=== PATIENT | female | born 1955 | race Two or more races ===

== ENCOUNTER 2016-04-05 22:34 | Inpatient (IN) | payer MEDICAID ==
[~2016-04-05] VITALS: Ht 154.9 cm; Wt 60.7 kg
[2016-04-06] MEDS ORDERED: ONDANSETRON 4 MG INJ IV STA (01:26)
[2016-04-06] MEDS ORDERED: morphine 2 MG INJ IV STA (01:26)
[2016-04-06] MEDS ORDERED: SOD CHLORIDE 0.9% 1,000 ML IV STA (01:26)
[2016-04-06 02:29] LABS: BASOPHILS % 0.4 % (0.0-2.0); EOSINOPHILS % 0.3 % (0.0-7.0); HEMATOCRIT 42.4 % (37.0-47.0); HEMOGLOBIN 14.4 g/dl (12.0-16.0); LYMPHOCYTES # 2.6 10^3/ul (0.8-2.9); LYMPHOCYTES % 20.1 % (15.0-51.0); MEAN CORPUSCULAR HEMOGLOBIN 30.5 pg (29.0-33.0); MEAN CORPUSCULAR HGB CONC 34.1 g/dl (32.0-37.0); MEAN CORPUSCULAR VOLUME 89.4 fl (82.0-101.0); MEAN PLATELET VOLUME 9.9 fl (7.4-10.4); MONOCYTE # 0.6 10^3/ul (0.3-0.9); MONOCYTES % 4.3 % (0.0-11.0); NEUTROPHIL # 9.7 10^3/ul (1.6-7.5); NEUTROPHILS % 74.9 % (39.0-77.0); PLATELET COUNT 345 10^3/UL (140-440); RED BLOOD COUNT 4.74 10^6/ul (4.20-5.40); RED CELL DISTRIBUTION WIDTH 13.8 % (11.5-14.5)
[2016-04-06 02:37] LABS: ALBUMIN 4.6 g/dl (3.3-4.9)
[2016-04-06 02:38] LABS: POTASSIUM 5.4 mmol/L (3.5-5.1)
[2016-04-06 02:40] LABS: ALBUMIN/GLOBULIN RATIO 1.58; BILIRUBIN,INDIRECT 0.9 mg/dl (0-1.1); BILIRUBIN,TOTAL 0.9 mg/dl (0.2-1.3); CREATININE 1.08 mg/dl (0.44-1.00); TOTAL PROTEIN 7.5 g/dl (6.1-8.1)
[2016-04-06 02:41] LABS: CALCIUM 10.7 mg/dl (8.4-10.2)
[2016-04-06 02:47] LABS: ADD UMIC NO; URINE BILIRUBIN (Dip) NEGATIVE (NEGATIVE); URINE BLOOD (Dip) NEGATIVE (NEGATIVE); URINE COLOR LT. YELLOW (YELLOW); URINE GLUCOSE (Dip) >=1000 % (NEGATIVE); URINE KETONES (Dip) NEGATIVE (NEGATIVE); URINE LEUKOCYTE ESTERASE (Dip) NEGATIVE (NEGATIVE); URINE NITRITE (Dip) NEGATIVE (NEGATIVE); URINE TOTAL PROTEIN (Dip) NEGATIVE (NEGATIVE); URINE UROBILINOGEN (Dip) 0.2 E.U./dL (0.1-1.0)
[2016-04-06 02:52] LABS: CONDITION 1
[2016-04-06] MEDS ORDERED: SOD CHLORIDE 0.9% 1,000 ML IV ONE ×2 (03:00→05:00)
--- NOTE | 2016-04-06 03:58 | RADRPT ---
PROCEDURE: CT of the abdomen and pelvis without contrast CLINICAL INDICATION: Upper abdominal pain. TECHNIQUE: Spiral CT images through the abdomen and pelvis without the use of contrast. The admin istered radiation dose is CTDI 7.48 and DLP 422.36. One or more of the following dose reduction enrique hniques were used: automated exposure control, adjustment of the mA and/or kV according to patient s ize, or use of iterative reconstruction technique. COMPARISON: None FINDINGS: Lack of oral and intravenous contrast somewhat limits evaluation. Slight dependent atelectasis of the lung bases is seen. No pleural effusion is seen. Trace pericardial fluid. Small calcified granuloma of the liver and spleen. Tiny probable right adrenal adenoma. The kidney s, left adrenal, and pancreas are unremarkable appearance. No stones are seen in the kidneys, urete rs, or bladder. The gallbladder is contracted. No biliary or pancreatic ductal dilatation is seen. . . There is no evidence for bowel obstruction, free air, or abscess. The appendix is normal in a ppearance. few colonic diverticula are seen. There is no evidence for diverticulitis. No adenopath y or ascites is seen. Aortic calcification is seen. Debris is seen in the stomach. The duodenum is slightly distended with fluid and debris. The aorta - SMA angle is normal at 42 degrees. Calcified uterine fibroids are seen. There is a 4 cm low attenuation lesion of the left ovary, probable cyst . A small calcification is seen in the right ovary. The urinary bladder is unremarkable in appeara nce. Tiny fat-containing right inguinal hernia.. Degenerative change of the spine. IMPRESSION: Fluid and debris in the stomach and duodenum slightly dilated duodenum but normal angle between the aorta and superior mesenteric artery. 4 cm probable left ovarian cyst. Pelvic ultrasound followup can be obtained as indicated. Uterine fibroids. Tiny probable right adrenal adenoma.. RPTAT: [facility] Physician Micheline Date Time Electronically viewed and signed by Physician Micheline on 04/06/2016 03:58 ELODIA/
[2016-04-06] MEDS ORDERED: ONDA4TAB11 PO (05:52)
[2016-04-06] MEDS ORDERED: NA POLYST SULFON 15 GM/60 ML BTL PO ONE (06:15)
[2016-04-06] MEDS ORDERED: ACETAMINOPHEN 325 MG TAB PO PRN ×2 (07:00→07:30)
[2016-04-06] MEDS ORDERED: ONDANSETRON 4 MG INJ IV PRN ×2 (07:00→07:30)
--- NOTE | 2016-04-06 07:08 | ERA ---
ER Documentation Chief Complaint Date/Time DATE: 04/06/16 TIME: 06:59 Chief Complaint High blood sugar and wt loss of 10 lbs in 2 weeks HPI This 6-year-old female presents with hyperglycemia, temporal weight-loss in 8 days according to , upper abdominal pain. She normally takes glipizide and metformin for her diabetes which usually works but for the last week she is been any will control her own sugar and has had sugars in the 4 and 500s. Vomiting is been nonbloody and nonbilious. States that she had an upper respiratory infection diagnosis bronchitis a week ago with flulike symptoms across her entire body. She was given a antibiotic for this for her doctor and that resolved but the vomiting got worse. ROS All systems reviewed and are negative except as per history of present illness. Medications Home Meds Active Scripts Ondansetron (Zofran Odt) 4 Mg Tab.rapdis, 4 MG PO Q6, #10 Prov:DENI CHING DO 04/06/16 Allergies Allergies: Coded Allergies: No Known Allergies (Verified Allergy, Mild, 03/23/09) PMhx/Soc History of Surgery: No Hx Neurological Disorder: No Hx Respiratory Disorders: No Hx Cardiac Disorders: No Hx Miscellaneous Medical Probl: Yes (HTN) Hx Alcohol Use: No Hx Substance Use: No Smoking Status: Never smoker Physical Exam Vitals Vital Signs Date Time Temp Pulse Resp B/P Pulse Ox O2 Delivery O2 Flow Rate FiO2 04/06/16 05:23 97.8 86 12 123/60 98 04/05/16 23:04 98.1 104 20 127/59 99 Physical Exam Const: [] Mild distress Head: Atraumatic Eyes: Normal Conjunctiva ENT: Normal External Ears, Nose and Mouth. It is membranes with a mouth dry. Neck: Full range of motion..~ No meningismus. Resp: Clear to auscultation bilaterally Cardio: Regular rate and rhythm, no murmurs Abd: Soft, mild tenderness in the upper half of the abdomen without guarding or rebound non distended. Normal bowel sounds Skin: No petechiae or rashes Back: No midline or flank tenderness Ext: No cyanosis, or edema Neur: Awake and alert and oriented 3, no focal deficits Psych: Normal Mood and Affect Result Diagram: 04/06/1614604/06/16146 Results 24 hrs Laboratory Tests Test 04/06/16 01:47 04/06/16 04:27 04/06/16 06:08 Alanine Aminotransferase (ALT/SGPT) 18IU/L Albumin 4.6g/dl Albumin/Globulin Ratio 1.58 Alkaline Phosphatase 149IU/L Anion Gap 20 Aspartate Amino Transf (AST/SGOT) 13IU/L Basophils # 0.010^3/ul Basophils % 0.4% Blood Urea Nitrogen 35mg/dl Calcium Level 10.7mg/dl Carbon Dioxide Level 25mmol/L Chloride Level 94mmol/L Creatinine 1.08mg/dl Direct Bilirubin 0.00mg/dl Eosinophils # 0.010^3/ul Eosinophils % 0.3% Globulin 2.90g/dl Glucose Level 502mg/dl Hematocrit 42.4% Hemoglobin 14.4g/dl Indirect Bilirubin 0.9mg/dl Lactic Acid Level 2.1mmol/L Lipase 271U/L Lymphocytes # 2.610^3/ul Lymphocytes % 20.1% Mean Corpuscular Hemoglobin 30.5pg Mean Corpuscular Hemoglobin Concent 34.1g/dl Mean Corpuscular Volume 89.4fl Mean Platelet Volume 9.9fl Monocytes # 0.610^3/ul Monocytes % 4.3% Neutrophils # 9.710^3/ul Neutrophils % 74.9% Nucleated Red Blood Cells # 0.010^3/ul Nucleated Red Blood Cells % 0.0/100WBC Platelet Count 58301^3/UL Potassium Level 5.4mmol/L Red Blood Count 4.7410^6/ul Red Cell Distribution Width 13.8% Sodium Level 134mmol/L Total Bilirubin 0.9mg/dl Total Protein 7.5g/dl Urine Bilirubin NEGATIVE Urine Clarity CLEAR Urine Color LT. YELLOW Urine Glucose >=1000% Urine Hemoglobin NEGATIVE Urine Ketones NEGATIVE Urine Leukocyte Esterase NEGATIVE Urine Nitrite NEGATIVE Urine Specific [place] 1.010 Urine Total Protein NEGATIVE Urine Urobilinogen 0.2 E.U./dL Urine pH 5.5 White Blood Count 13.010^3/ul Bedside Glucose 316mg/dL 292mg/dL Current Medications Medications (Trade) Dose Ordered Sig/Paul Route PRN Reason Start Time Stop Time Status Last Admin Dose Admin Sodium Chloride (NS) 1,000 ml @ 1,000 mls/hr Q1H STAT IV 04/06/16 01:26 04/06/16 02:25 DC 04/06/16 01:55 Morphine Sulfate (morphine) 2 mg ONCE STAT IV 04/06/16 01:26 04/06/16 01:28 DC 04/06/16 01:56 Ondansetron HCl 4 mg 4 mg ONCE STAT IV 04/06/16 01:26 04/06/16 01:28 DC 04/06/16 01:56 Sodium Chloride 1,000 ml @ 1,000 mls/hr Q1H ONCE IV 04/06/16 03:00 04/06/16 03:59 DC 04/06/16 03:05 Sodium Chloride (NS) 1,000 ml @ 1,000 mls/hr Q1H ONCE IV 04/06/16 05:00 04/06/16 05:59 DC 04/06/16 05:01 Sodium Polystyrene Sulfonate (Kayexalate) 30 gm ONCE ONCE PO 04/06/16 06:15 04/06/16 06:16 DC 04/06/16 06:24 Ondansetron HCl (Zofran Inj) 4 mg BRIDGE ORDER PRN IV NAUSEA AND/OR VOMITING 04/06/16 07:00 04/07/16 06:59 Acetaminophen (Tylenol Tab) 650 mg ER BRIDGE PRN PO MILD PAIN/FEVER 04/06/16 07:00 04/07/16 06:59 Procedures/MDM 60-year-old female with vomiting and rapid unexplained weight loss, dehydration and uncontrollable blood sugars. Patient's nausea was resolved with Zofran. She is able to tolerate smaller Kayexalate for her hyperkalemia after this. She is also given 3 L of fluid which helped decrease her sugar to a level below 300. She does however have a constellation of findings including adrenal adenoma , leukocytosis, hyperkalemia and other metabolic abnormalities. The patient's blood sugars can be reduced in the emergency room is unlikely that her home medication is continue to control them. Patient would definitively benefit from admission for further IV hydration and further workup of her rapid weight loss with concomitant adrenal adenoma. Abdominal pain is reduced with morphine. Spoke with Dr. Pompa who will be admitting the patient to the medical surgical for for further evaluation. CT abdomen and pelvis interpretation: I see no obstruction, no free air, there is a right adrenal adenoma, fibroids, ovarian cyst, no acute fractures. EKG interpretation: Normal sinus rhythm rate of 85, normal axis, no ST-T wave changes concerning for acute ischemia, normal intervals. Normal EKG Departure Diagnosis: Primary Impression: Vomiting Additional Impressions: Hyperglycemia Rapid weight loss Hyperkalemia Renal insufficiency Acute abdominal pain Fibroids Adrenal adenoma Condition: Stable Patient Instructions: Hyperglycemia (High Blood Sugar), Vomiting (6Y-Adult) Additional Instructions: Llame al doctor MAANA y zachary jonny DARÍO PARA DENTRO DE 1-2 SAMANO.Dgale a la secretaria que nosotros le instruimos hacer esta darío.Avise o llame si rider condicin se empeora antes de la darío. Regresa aqui si peor o no mejor. DENI CHING DO Apr 06, 2016 07:08
[2016-04-06] MEDS ORDERED: SOD CHLORIDE 0.9% 1,000 ML IV SCH (07:20)
[2016-04-06] MEDS ORDERED: NACL 0.9% 3 ML SYG IV SCH (07:30)
[2016-04-06] MEDS ORDERED: ALBUTEROL/IPRATROPIUM (NEB) 3 ML AMP HHN PRN (07:30)
[2016-04-06] MEDS ORDERED: morphine 2 MG INJ IV PRN (07:30)
[2016-04-06] MEDS: INSULIN ASPART [NOVOLOG] 3 ML PEN SC SCH ×4 (08:46→23:03)
[2016-04-06] MEDS: INSULIN GLARGINE [LANtus] 3 ML PEN SC SCH (08:47)
[2016-04-06] MEDS: HEPARIN 5,000 UNIT/0.5 ML SYG SC SCH ×2 (10:00→21:18)
[2016-04-06 11:00] VITALS: TEMP 97.8
[2016-04-06 13:09] VITALS: Ht 154.9 cm; Wt 60.7 kg
[2016-04-06 13:35] VITALS: BP 135/64; PULSE 85; RESP 16
[2016-04-06] MEDS ORDERED: BENA40TA41 PO (14:34)
[2016-04-06] MEDS ORDERED: CHLO25TA13 PO (14:34)
[2016-04-06] MEDS ORDERED: AMLO-147 PO (14:34)
[2016-04-06] MEDS ORDERED: METF1000 PO (14:34)
[2016-04-06] MEDS ORDERED: GLIP-95 PO (14:34)
[2016-04-06] MEDS ORDERED: GLUCOSE GEL 15 GRAM TUBE BUCCAL PRN (15:30)
[2016-04-06] MEDS ORDERED: GLUCAGON 1 MG INJ IM PRN (15:30)
[2016-04-06] MEDS ORDERED: GLUCOSE GEL 15 GRAM TUBE PO PRN ×2 (15:30)
[2016-04-06] MEDS ORDERED: DEXTROSE 50% 50 ML SYRINGE IV PRN ×2 (15:30)
[2016-04-06] MEDS: SOD CHLORIDE 0.9% 1,000 ML IV SCH ×2 (15:30→22:14)
[2016-04-06] MEDS: FAMOTIDINE 20 MG INJ IV SCH (15:53)
[2016-04-06] MEDS ORDERED: GUAIFENESIN 20 MG/ML 5ML CUP PO PRN (16:00)
[2016-04-06 16:07] LABS: POTASSIUM 3.6 mmol/L (3.5-5.1)
[2016-04-06 16:10] LABS: CREATININE 0.68 mg/dl (0.44-1.00)
--- NOTE | 2016-04-06 16:19 | HP ---
DATE OF ADMISSION: 04/06/2016 CHIEF COMPLAINT: Elevated blood sugar and weakness and questionable weight loss. HISTORY OF PRESENT ILLNESS: A 60-year-old female with past medical history of type 2 diabetes, esse ntial hypertension, high cholesterol, who has been having complaints of weakness and also elevated b lood sugars. Apparently, the family checked her sugar at home and it was in the 400 to 500 range. She has also been having some 10 pound weight loss over the last 7 to 8 days, unintentional. No nig ht sweats. She says that she was recently treated for flu over the last week or so. [facility] and got azithromycin and prednisone which gave her some relief, but 3 days ago started having nausea symptoms and 1 episode of vomiting nonbilious, nonbloody. When chas mason came into the ER today, she was found with a fingerstick sugar of 500, but no signs of any DKA, an d her potassium was a little high at 5.4. Denies any history of any stroke or heart attack. She wu s also been having some mild productive cough, slightly greenish in nature, but denies any fevers or chills. No upper or lower GI bleeding. No diarrhea, no constipation. PAST MEDICAL HISTORY: As stated above. ALLERGIES: NO KNOWN DRUG ALLERGIES. HOME MEDICATIONS: 1. Amlodipine 10 mg daily. 2. Benazepril 40 mg daily. 3. Chlorthalidone 25 mg daily. 4. Zofran 4 mg q.6h. 5. Glipizide 10 mg with meals. 6. Metformin 1000 mg b.i.d. PAST SURGICAL HISTORY: None. FAMILY HISTORY: Positive for diabetes and hypertension. SOCIAL HISTORY: Negative for smoking, drinking, or IV drug abuse. PHYSICAL EXAMINATION: VITAL SIGNS: Temperature max 98.5, blood pressure 115 to 135/94 to 64, saturating at 98% on room ai r. GENERAL: The patient is lying in bed, answering questions appropriately. Family members at the bed side. No acute distress. HEENT: Pupils equal, round, react to light. Extraocular muscles intact. NECK: Supple, no thyromegaly. LUNGS: Clear to auscultation bilaterally. CARDIOVASCULAR: S1, S2 heard. No rubs or gallops. ABDOMEN: Soft, nontender, nondistended. Normal bowel sounds. No rebound or guarding. MUSCULOSKELETAL: No lower extremity edema bilaterally. NEUROLOGIC: No focal deficits. LABORATORY DATA: UA shows negative nitrites, negative leukocyte esterase. WBC 13.0, the rest of th e CBC is normal. Sodium 134, potassium 5.4, chloride 94, CO2 of 25, BUN of 35, creatinine 1.08, glu cose 502, calcium was 10.7. The LFTs are essentially normal. Lipase was normal. IMAGING: She had a CT abdomen and pelvis shows fluid and debris in the stomach and duodenum, slight ly dilated duodenum, with normal angle between aorta and SMA. A 4 cm probable left ovarian cyst, ut erine fibroids, tiny probable right adrenal adenoma. ASSESSMENT AND PLAN: This is a 60-year-old female coming in with signs of elevated blood sugars, we ight loss, weakness, dehydration. 1. Weakness again with signs of questionable weight loss. She does have hyperkalemia mild, and als o slightly elevated creatinine levels. I suspect her symptoms are secondary to dehydration. Her rider gars are in the 500 range. No signs of any DKA. There were no ketones in the urine. I do think we need to check an ABG or any serum ketones at this point. She has gotten IV fluids since admission. We will recheck a basic metabolic panel later today. We will let her start on a diet. We will ch filipe a TSH, A1c, lipid panel. Continue IV fluids as well. Continue sliding scale insulin. 2. Type 2 diabetes. Again, sugars are elevated in 500 range. The most recent one has been down to the high 100 range, so again continue sliding scale insulin. Check A1c. 3. Essential hypertension. Blood pressure stable. Continue current medications. 4. High cholesterol. Check a lipid panel. 5. Gastrointestinal prophylaxis. H2 joaquín. 6. Deep venous thrombosis prophylaxis. She is on heparin subcutaneous. Antiemetic medicines as we ll for any nausea symptoms. Dictated By: KISHAN DONAHUE Conf#: [id number] DID#: [id number]
[2016-04-06 20:57] VITALS: BP 155/73; RESP 16
[2016-04-07] MEDS: SOD CHLORIDE 0.9% 1,000 ML IV SCH (04:50)
[2016-04-07 06:01] LABS: ALBUMIN 3.2 g/dl (3.3-4.9)
[2016-04-07 06:02] LABS: POTASSIUM 3.6 mmol/L (3.5-5.1)
[2016-04-07 06:04] LABS: BILIRUBIN,INDIRECT 0.6 mg/dl (0-1.1); BILIRUBIN,TOTAL 0.6 mg/dl (0.2-1.3); CREATININE 0.65 mg/dl (0.44-1.00)
[2016-04-07 06:05] LABS: ALBUMIN/GLOBULIN RATIO 1.23; CALCIUM 8.9 mg/dl (8.4-10.2); CHOL/HDL RATIO 2.6 RATIO; TOTAL PROTEIN 5.8 g/dl (6.1-8.1)
[2016-04-07 06:34] LABS: THYROID STIMULATING HORMONE 1.1 MIU/L (0.465-4.680)
[2016-04-07 06:48] LABS: BASOPHILS % 0.4 % (0.0-2.0); EOSINOPHILS # 0.1 10^3/ul (0.0-0.5); EOSINOPHILS % 1.8 % (0.0-7.0); HEMATOCRIT 34.3 % (37.0-47.0); HEMOGLOBIN 11.6 g/dl (12.0-16.0); LYMPHOCYTES # 3.5 10^3/ul (0.8-2.9); LYMPHOCYTES % 45.6 % (15.0-51.0); MEAN CORPUSCULAR HEMOGLOBIN 30.5 pg (29.0-33.0); MEAN CORPUSCULAR HGB CONC 33.9 g/dl (32.0-37.0); MEAN CORPUSCULAR VOLUME 89.9 fl (82.0-101.0); MEAN PLATELET VOLUME 9.9 fl (7.4-10.4); MONOCYTE # 0.4 10^3/ul (0.3-0.9); MONOCYTES % 5.2 % (0.0-11.0); NEUTROPHIL # 3.7 10^3/ul (1.6-7.5); PLATELET COUNT 272 10^3/UL (140-440); RED BLOOD COUNT 3.81 10^6/ul (4.20-5.40); RED CELL DISTRIBUTION WIDTH 13.8 % (11.5-14.5); UNCORRECTED WBC 7.8 10^3/ul (4.8-10.8); WHITE BLOOD COUNT 7.8 10^3/ul (4.8-10.8)
[2016-04-07 07:12] LABS: CONDITION 1
[2016-04-07 08:00] VITALS: BP 142/65; PULSE 86; RESP 20
[2016-04-07] MEDS: INSULIN ASPART [NOVOLOG] 3 ML PEN SC SCH ×2 (08:00→11:41)
[2016-04-07] MEDS ORDERED: AMLODIPINE 10 MG TAB PO SCH (09:00)
[2016-04-07] MEDS: INSULIN GLARGINE [LANtus] 3 ML PEN SC SCH (09:16)
[2016-04-07] MEDS: FAMOTIDINE 20 MG INJ IV SCH (09:17)
[2016-04-07] MEDS: HEPARIN 5,000 UNIT/0.5 ML SYG SC SCH (09:21)
--- NOTE | 2016-04-07 11:22 | PDOCDIS ---
Discharge Instructions CONDITION Patient Condition: Stable HOME CARE INSTRUCTIONS: Special Diet: carb controlled diet FOLLOW UP/APPOINTMENTS Appointments Please take your medications as prescribed, and see your doctor in clinic in 1 week. KISHAN PIERRE Apr 07, 2016 11:22
--- NOTE | 2016-04-07 11:42 | DS ---
DATE OF ADMISSION: 04/06/2016 DATE OF DISCHARGE: 04/07/2016 HOSPITAL COURSE: The patient came in with elevated blood sugars and weakness. She was admitted. S he was found with a hemoglobin A1c of 10.4. She was placed on subcutaneous insulin regimen which he lped control her sugars down to normal range. She had less weakness symptoms, less dizziness sympto ms, and as she was getting IV fluids, she had some renal insufficiency which resolved. She was able to ambulate and tolerate a p.o. diet. Her blood pressure remained stable as well. Her TSH was nor mal, and a cholesterol panel was normal. Because the patient is tolerating p.o. diet and ambulating well, she will be discharged home today in improved condition. Her leukocytosis resolved as well. There were no signs of any fevers. She will be discharged home today in improved condition. DISCHARGE MEDICATIONS: She will be sent with the following medications 1. Norvasc 10 mg daily. 2. Benazepril 40 mg daily. 3. Chlorthalidone 25 mg daily. 4. Glipizide 10 mg with meals. 5. Metformin 1000 mg breakfast and dinner. 6. Zofran 4 mg q. 6 hours. FOLLOWUP: She will need to follow up with primary care doctor in the clinic in the next 1 to 2 week s. FINAL DIAGNOSES: 1. Weakness secondary to dehydration, improved. 2. Acute renal insufficiency, resolved, secondary to dehydration. 3. Elevated blood sugars, slightly uncontrolled diabetes, now resolved with an A1c of 10.4. 4. Type 2 diabetes. 5. Essential hypertension. 6. High cholesterol. Time spent discharging the patient 40 minutes. Dictated By: KISHAN DONAHUE Conf#: [id number] DID#: [id number]
== END 2016-04-07 14:19 | disposition home or self-care (01) | DRG 641 ==
LOC: E/R 22:34 → MS2 04-06 06:45
PROVIDERS: ADMIT Internal Medicine; ATTEND Internal Medicine
DX: E86.0 Dehydration (principal); E11.65 Type 2 diabetes mellitus with hyperglycemia; I10 Essential (primary) hypertension; E87.5 Hyperkalemia; E78.00 Pure hypercholesterolemia, unspecified
CPT/HCPCS: 74176; 80048; 80053; 80061; 81003; 82962; 83036; 83605; 83690; 84443; 85025; 93005; J1815; J2270; J2405; J7030

== ENCOUNTER 2016-05-30 08:12 | Emergency (ER) | payer MEDICAID ==
[~2016-05-30] VITALS: Ht 162.6 cm; Wt 67.8 kg
[~2016-05-30 08:12] MED LIST: AMLO-147 PO; BENA40TA41 PO; CHLO25TA13 PO; GLIP-95 PO; METF1000 PO; ONDA4TAB11 PO
[2016-05-30 08:14] VITALS: Ht 162.6 cm; Wt 67.8 kg
--- NOTE | 2016-05-30 08:47 | ERD ---
ER Documentation Chief Complaint Date/Time DATE: 05/30/16 TIME: 08:45 Chief Complaint cough x 8 days, gags when coughing HPI This is a 60-year-old female who presents the emergency department today complaining of a cough for the past 8 days. States that she feels like she wants to vomit after coughing. States that for the first 3 days she had a fever but denies any currently. Denies any sore throat. States the cough is worse at night. States she has not taken any medication for her coughing. ROS All systems reviewed and are negative except as per history of present illness. Medications Home Meds Active Scripts Cetirizine Hcl* (Zyrtec*) 10 Mg Capsule, 10 MG PO DAILY, #14 TAB.CHEW Prov:ALIZE HUGHES PA-C 05/30/16 Fluticasone Propionate (Flonase Allergy Relief) 9.9 Ml Esmond.susp, 2 SPRAY NASAL DAILY, #1 BOTTLE TO EACH NOSTRIL Prov:ALIZE HUGHES PA-C 05/30/16 Guaifenesin-Dextromethorphan* (Robitussin* DM) 100MG/10MG/5ML Syrup, 10 ML PO Q6H Y for COUGH for 5 Days, ML Prov:ALIZE HUGHES PA-C 05/30/16 Ondansetron (Zofran Odt) 4 Mg Tab.rapdis, 4 MG PO Q6, #10 Prov:DENI CHING DO 04/06/16 Reported Medications Chlorthalidone* (Chlorthalidone*) 25 Mg Tablet, 25 MG PO DAILY, TAB 04/06/16 Glipizide* (Glipizide*) 10 Mg Tablet, 10 MG PO AC MEALS, TAB 04/06/16 Amlodipine Besylate* (Amlodipine Besylate*) 10 Mg Tablet, 10 MG PO DAILY, #30 TAB 04/06/16 Benazepril Hcl* (Benazepril Hcl*) 40 Mg Tablet, 40 MG PO DAILY, #30 TAB 04/06/16 Metformin Hcl* (Metformin Hcl*) 1,000 Mg Tablet, 1000 MG PO WITH BREAKFAST DINNE , #30 TAB 04/06/16 Allergies Allergies: Coded Allergies: No Known Allergies (Verified Allergy, Mild, 03/23/09) PMhx/Soc History of Surgery: No Anesthesia Reaction: No Hx Neurological Disorder: No Hx Respiratory Disorders: No Hx Cardiac Disorders: No Hx Psychiatric Problems: No Hx Miscellaneous Medical Probl: No Hx Alcohol Use: No Hx Substance Use: No Hx Tobacco Use: No Smoking Status: Never smoker Physical Exam Vitals Vital Signs Date Time Temp Pulse Resp B/P Pulse Ox O2 Delivery O2 Flow Rate FiO2 05/30/16 08:14 97.6 83 18 144/70 99 Physical Exam Const: No acute distress Head: Atraumatic Eyes: Normal Conjunctiva ENT: Normal External Ears, Nose and Mouth. Neck: Full range of motion..~ No meningismus. Resp: Clear to auscultation bilaterally. No absent breath sounds. No wheezing. Cardio: Regular rate and rhythm, no murmurs Abd: Soft, non tender, non distended. Normal bowel sounds Skin: No petechiae or rashes Neur: Awake and alert Psych: Normal Mood and Affect Results 24 hrs DIAGNOSTIC IMAGING REPORT Patient: VANDANA AGUILAR : 1955 Age: 60 Sex: F MR #: [id number] DOS: 05/30/16 0000 Ordering MD: ALIZE HUGHES PA-C Location: [facility] Room/Bed: PROCEDURE: Chest Radiograph. CLINICAL INDICATION: Cough TECHNIQUE: Single frontal chest radiograph. COMPARISON: Chest radiograph 03/23/2009 FINDINGS: Heart size is within normal limits. Atherosclerotic calcifications are present. No infiltrate or effusion is seen. The bones are intact. IMPRESSION: 1. No evidence of acute cardiopulmonary disease. 2. Atherosclerotic vascular disease. RPTAT: KK .Aureliano Arroyo MD, MD Date Time Electronically viewed and signed by .Aureliano Arroyo MD, MD on 2016 09:00 .B/ CC: ALIZE HUGHES PA-C Procedures/MDM This is a 60-year-old female who presents to the emergency department today complaining of cough for the past 8 days. Patient is afebrile and otherwise well-appearing. Her oxygen saturation is 97%. However given patient's age and duration of symptoms I did obtain a chest x-ray. Chest x-ray shows no evidence of acute cardiopulmonary disease. There is no infiltrate or effusion seen. Low suspicion for pneumonia, PE, abscess, pleural effusion. Patient symptoms at this time is consistent with cough possibly related to URI likely viral versus allergic rhinitis. I have low suspicion for strep pharyngitis, peritonsillar abscess, retropharyngeal abscess, otitis media, PNA, sinusitis, abscess, meningitis, sepsis, or other acute infectious bacterial process. Patient was given a prescription for Zyrtec, Flonase, Robitussin. At this time the patient is stable for discharge and outpatient management. They should follow up with their PCP in the next 1-2. They may return to the emergency department sooner if symptoms persist or worsen. Patient understood and agreed with the plan. Departure Diagnosis: Primary Impression: Cough Condition: Fair ALIZE HUGHES PA-C May 30, 2016 08:46
--- NOTE | 2016-05-30 09:00 | RADRPT ---
PROCEDURE: Chest Radiograph. CLINICAL INDICATION: Cough TECHNIQUE: Single frontal chest radiograph. COMPARISON: Chest radiograph 03/23/2009 FINDINGS: Heart size is within normal limits. Atherosclerotic calcifications are present. No infiltrate or effusion is seen. The bones are intact. IMPRESSION: 1. No evidence of acute cardiopulmonary disease. 2. Atherosclerotic vascular disease. RPTAT: KK .Aureliano Arroyo MD, MD Date Time Electronically viewed and signed by .Aureliano Arroyo MD, on 05/30/2016 09:00 .B/
[2016-05-30] MEDS ORDERED: UDROBDM PO (09:26)
[2016-05-30] MEDS ORDERED: FLUT9.9S NASAL (09:26)
[2016-05-30] MEDS ORDERED: CETI10CA PO (09:27)
== END 2016-05-30 09:35 | disposition home or self-care (01) ==
LOC: FTE 08:12
DX: R05 Cough (principal); E11.9 Type 2 diabetes mellitus without complications; Z79.84 Long term (current) use of oral hypoglycemic drugs
CPT/HCPCS: 71010

== ENCOUNTER 2018-02-26 12:11 | Emergency (ER) | payer MEDICAID ==
[~2018-02-26] VITALS: Ht 157.5 cm; Wt 61.4 kg
[~2018-02-26 12:11] MED LIST changes: -BENA40TA41 PO; +BENA40TA56 PO; +CETI10CA PO; -CHLO25TA13 PO; +CHLO25TA2 PO; +FLUT9.9S NASAL; -GLIP-95 PO; +GLIP10TA14 PO; +GUAI5SYR2 PO; -METF1000 PO; +METF100010 PO
[2018-02-26 12:13] VITALS: Ht 157.5 cm; Wt 61.4 kg
--- NOTE | 2018-02-26 13:01 | ERD ---
ER Documentation Chief Complaint Chief Complaint BURNING SENSATION UPON URINATION STARTED AT 10 AM HPI 63-year-old female, presents to the emergency department, complaining of 2 days with worsening of urinary symptoms including dysuria, frequency, pelvic discomfort and low back pain. No medications taken at this time. The patient denies fevers, no chills, no nausea or vomiting. No vaginal discharge. ROS All systems reviewed and are negative except as per history of present illness. Medications Home Meds Active Scripts Acetaminophen* (Tylenol*) 325 Mg Tablet, 2 TAB PO Q8 PRN for PAIN AND OR ELEVATED TEMP, #20 TAB Prov:SHEBA QUIÑONES MD 02/26/18 Phenazopyridine Hcl* (Pyridium*) 200 Mg Tab, 200 MG PO TID PRN for URINARY PAIN, #6 TAB Prov:SHEBA QUIÑONES MD 02/26/18 Ciprofloxacin Hcl* (Ciprofloxacin Hcl*) 250 Mg Tablet, 250 MG PO BID, #14 TAB Prov:SHEBA QUIÑONES MD 02/26/18 Cetirizine Hcl* (Zyrtec*) 10 Mg Capsule, 10 MG PO DAILY, #14 TAB.CHEW Prov:ALIZE HUGHES PA-C 05/30/16 Fluticasone Propionate (Flonase Allergy Relief) 9.9 Ml [place].susp, 2 SPRAY NASAL DAILY, #1 BOTTLE TO EACH NOSTRIL Prov:ALIZE HUGHES PA-C 05/30/16 Guaifenesin-Dextromethorphan* (Robitussin* DM) 100MG/10MG/5ML Syrup, 10 ML PO Q6H PRN for COUGH for 5 Days, ML Prov:ALIZE HUGHES PA-C 05/30/16 Ondansetron (Zofran Odt) 4 Mg Tab.rapdis, 4 MG PO Q6, #10 Prov:DENI CHING DO 04/06/16 Reported Medications Chlorthalidone* (Chlorthalidone*) 25 Mg Tablet, 25 MG PO DAILY, TAB 04/06/16 Glipizide* (Glipizide*) 10 Mg Tablet, 10 MG PO AC MEALS, TAB 04/06/16 Amlodipine Besylate* (Amlodipine Besylate*) 10 Mg Tablet, 10 MG PO DAILY, #30 TAB 04/06/16 Benazepril Hcl* (Benazepril Hcl*) 40 Mg Tablet, 40 MG PO DAILY, #30 TAB 04/06/16 Metformin Hcl* (Metformin Hcl*) 1,000 Mg Tablet, 1000 MG PO WITH BREAKFAST DINNE, #30 TAB 04/06/16 Allergies Allergies: Coded Allergies: No Known Allergies (Verified Allergy, Mild, 03/23/09) PMhx/Soc History of Surgery: No Anesthesia Reaction: No Hx Neurological Disorder: No Hx Respiratory Disorders: No Hx Cardiac Disorders: Yes (HTN) Hx Psychiatric Problems: No Hx Miscellaneous Medical Probl: Yes (DM) Hx Alcohol Use: No Hx Substance Use: No Hx Tobacco Use: No Smoking Status: Never smoker FmHx Family History: diabetes Physical Exam Vitals Vital Signs Date Temp Pulse Resp B/P (MAP) Pulse Ox O2 O2 Flow FiO2 Time Delivery Rate 02/26/18 97.8 98 20 195/86 96 Room Air 14:45 (122) 02/26/18 97.4 99 19 190/87 99 12:13 (121) Physical Exam Const: No acute distress Head: Atraumatic Eyes: Normal Conjunctiva ENT: Normal External Ears, Nose and Mouth. Neck: Full range of motion. No meningismus. Resp: Clear to auscultation bilaterally Cardio: Regular rate and rhythm, no murmurs Abd: Soft, non tender, non distended. Normal bowel sounds Skin: No petechiae or rashes Back: No midline or flank tenderness Ext: No cyanosis, or edema Neur: Awake and alert Psych: Normal Mood and Affect Results 24 hrs Laboratory Tests Test 02/26/18 14:13 Bedside Urine pH (LAB) 6.0 Bedside Urine Protein (LAB) 3+ Bedside Urine Glucose (UA) 0.25% Bedside Urine Ketones (LAB) 2+ Bedside Urine Blood 3+ Bedside Urine Nitrite (LAB) Negative Bedside Urine Leukocyte Esterase (L 3+ Procedures/MDM Differential diagnosis include but not limited to: UTI, colitis, gastroenteritis, kidney stones, irritable bowel syndrome, inflammatory bowel syndrome, malabsorption syndrome, cholelithiasis, food intolerance, medication side effect, pancreatitis, diverticulitis, bowel obstruction. Low suspicion for acute abdomen Physical examination and clinical presentation consistent most likely with u rinary tract infection. During the ED course the patient remained stable, no new complaints. The patient received treatment with Toradol IM presenting overall improvement of the symptoms. Results and clinical impression discussed with patient who agrees with management. The patient is stable to be treated outpatient and will be discharged home, some side effects of prescribed medications (headache, rash, nausea, vomiting, diarrhea, drowsiness, habituation, bleeding, hypertension, interactions with other medications) were reviewed. The patient was instructed to follow up with the primary care provider in the next 48h. If symptoms persist, worsen or new symptoms develop, then patient should return to the ED immediately. Instructions explained and given directly by me to the patient with acknowledgment and demonstrated understanding. Disclaimer: Inadvertent spelling and grammatical errors are likely due to EHR/dictation software use and do not reflect on the overall quality of patient care. Also, please note that the electronic time recorded on this note does not necessarily reflect the actual time of the patient encounter. Departure Diagnosis: Primary Impression: UTI (urinary tract infection) Condition: Stable Patient Instructions: Understanding Urinary Tract Infections (UTIs) Additional Instructions: Muchas fabiana por [facility] para rider servicio. Esperamos que en rider visita a la conor de emergencia rider problema medico haya sido solucionado y que se sienta mucho mejor. Para estar seguros que rider mejoria sigue en proceso, le pedimos el favor de hacer jonny andrés de seguimiento medico con rider doctor primario en los proximos 2-4 so. Lleve con usted estos documentos y las medicinas recetadas. Si raul sintomas empeoran, NO SE ESPERE, por favor regrese a conor de emergencia INMEDIATAMENTE. En raymundo que usted no tenga un mdico de atencin primaria: Llame al mdico o clnica comunitaria de referencia que aparece abajo kiersten las horas de consultorio para hacer jonny andrés para que le vean. CLINICAS: [facility] [phone] [facility] [phone] [facility] [phone] [facility] [phone] [address] [place] [id number] [phone] [facility]. [phone] SHEBA SANTAMARIA MD Feb 26, 2018 13:01
[2018-02-26] MEDS ORDERED: PHEN-538 PO (14:34)
[2018-02-26] MEDS ORDERED: ACET325T33 PO (14:34)
[2018-02-26] MEDS ORDERED: CIPR-193 PO (14:34)
[2018-02-26 14:45] VITALS: BP 195/86; PULSE 98; RESP 20
== END 2018-02-26 14:47 | disposition home or self-care (01) ==
LOC: FTE 12:11
DX: N39.0 Urinary tract infection, site not specified (principal); I10 Essential (primary) hypertension; E11.9 Type 2 diabetes mellitus without complications; Z79.84 Long term (current) use of oral hypoglycemic drugs
CPT/HCPCS: 81003; Z7502; 99283

== ENCOUNTER 2018-07-11 22:03 | Emergency (ER) | payer MEDICAID ==
[~2018-07-11] VITALS: Ht 165.1 cm; Wt 60.9 kg
[~2018-07-11 22:03] MED LIST changes: +ACET325T33 PO; +CIPR-193 PO; +PHEN-538 PO
[2018-07-11 22:07] VITALS: BP 173/75; PULSE 90; RESP 16; Ht 165.1 cm; Wt 60.9 kg
[2018-07-11] MEDS ORDERED: MED4DP PO (22:50)
[2018-07-11] MEDS ORDERED: HYDR-843 PO (22:50)
[2018-07-11] MEDS ORDERED: ELIM TOP (22:50)
[2018-07-11] MEDS ORDERED: HC30CR25 TOP (22:50)
--- NOTE | 2018-07-12 01:45 | ERD ---
ER Documentation Chief Complaint Chief Complaint pt reports diffuse bodily rash x 8 days HPI 62-year-old female presented to the emergency department by her daughter with concerns for diffuse body rash which began 8 days ago. The rash has been worsening. It first began on her bilateral upper extremities and then spread to her trunk. She reports significant pruritus which is worse at night. She tried Benadryl and hydrocortisone cream without significant relief. She denies any feelings of her throat closing, fevers, chills, shortness of breath, or other symptoms. ROS All systems reviewed and are negative except as per history of present illness. Medications Home Meds Active Scripts Hydroxyzine Hcl* (Hydroxyzine Hcl*) 25 Mg Tablet, 25 MG PO Q8H PRN for ITCHING, #30 TAB Prov:SALVADOR TRIVEDI PA-C 07/11/18 Methylprednisolone* (Medrol* DOSE PACK) 4 Mg/Dose-Pack Tab.ds.pk, 4 MG PO . DIRECTED, #1 PACKET Prov:SALVADOR TRIVEDI PA-C 07/11/18 Hydrocortisone* Topical (Hydrocortisone* Topical) 2.5%-28.3 Gm Cream..g., 1 APPLIC TOP BID, #1 TUB Prov:SALVADOR TRIVEDI PA-C 07/11/18 Permethrin* (Elimite*) 5% Cr, 1 APPLIC TOP ONCE, #1 TUB Prov:SALVADOR TRIVEDI PA-C 07/11/18 Acetaminophen* (Tylenol*) 325 Mg Tablet, 2 TAB PO Q8 PRN for PAIN AND OR ELEVATED TEMP, #20 TAB Prov:SHEBA QUIÑONES MD 02/26/18 Phenazopyridine Hcl* (Pyridium*) 200 Mg Tab, 200 MG PO TID PRN for URINARY PAIN, #6 TAB Prov:SHEBA QIUÑONES MD 02/26/18 Ciprofloxacin Hcl* (Ciprofloxacin Hcl*) 250 Mg Tablet, 250 MG PO BID, #14 TAB Prov:SHEBA QUIÑONES MD 02/26/18 Cetirizine Hcl* (Zyrtec*) 10 Mg Capsule, 10 MG PO DAILY, #14 TAB.CHEW Prov:ALIZE HUGHES PA-C 05/30/16 Fluticasone Propionate (Flonase Allergy Relief) 9.9 Ml [place].susp, 2 SPRAY NASAL DAILY, #1 BOTTLE TO EACH NOSTRIL Prov:ALIZE HUGHES PA-C 05/30/16 Guaifenesin-Dextromethorphan* (Robitussin* DM) 100MG/10MG/5ML Syrup, 10 ML PO Q6H PRN for COUGH for 5 Days, ML Prov:ALIZE HUGHES PA-C 05/30/16 Ondansetron (Zofran Odt) 4 Mg Tab.rapdis, 4 MG PO Q6, #10 Prov:DENI CHING DO 04/06/16 Reported Medications Chlorthalidone* (Chlorthalidone*) 25 Mg Tablet, 25 MG PO DAILY, TAB 04/06/16 Glipizide* (Glipizide*) 10 Mg Tablet, 10 MG PO AC MEALS, TAB 04/06/16 Amlodipine Besylate* (Amlodipine Besylate*) 10 Mg Tablet, 10 MG PO DAILY, #30 TAB 04/06/16 Benazepril Hcl* (Benazepril Hcl*) 40 Mg Tablet, 40 MG PO DAILY, #30 TAB 04/06/16 Metformin Hcl* (Metformin Hcl*) 1,000 Mg Tablet, 1000 MG PO WITH BREAKFAST DI NNE, #30 TAB 04/06/16 Allergies Allergies: Coded Allergies: No Known Allergies (Verified Allergy, Mild, 03/23/09) PMhx/Soc Medical and Surgical Hx: pt denies Surgical Hx History of Surgery: No Anesthesia Reaction: No Hx Neurological Disorder: No Hx Respiratory Disorders: No Hx Cardiac Disorders: Yes (HTN, HLD) Hx Psychiatric Problems: No Hx Miscellaneous Medical Probl: Yes (DM) Hx Alcohol Use: No Hx Substance Use: No Hx Tobacco Use: No Smoking Status: Never smoker FmHx Family History: No diabetes Physical Exam Vitals Vital Signs Date Temp Pulse Resp B/P (MAP) Pulse Ox O2 O2 Flow FiO2 Time Delivery Rate 07/11/18 98.4 90 16 173/75 100 22:07 (107) Physical Exam Const: No acute distress Head: Atraumatic Eyes: Normal Conjunctiva ENT: Normal External Ears, Nose and Mouth. Posterior pharynx is clear. Airway is patent. No uvulitis. Neck: Full range of motion. No meningismus. Resp: Clear to auscultation bilaterally Cardio: Regular rate and rhythm, no murmurs Skin: Multiple excoriated lesions noted to the bilateral upper extremities and the trunk with some linear burrowing. No significance or any erythema or lymphatic streaking noted. Back: No midline or flank tenderness Ext: No cyanosis, or edema Neur: Awake and alert Psych: Normal Mood and Affect Procedures/MDM 62-year-old female presenting to the emergency department with signs and symptoms most consistent with pediculosis. Symptoms may also be secondary to urticaria, however this is less likely. Patient will be treated as an outpatient with prescriptions. She is given counseling regarding scabies. She was given strict return precautions. She was in agreement with the diagnosis, plan, need for follow-up, return precautions. There is no evidence of cellulitis, necrotizing fasciitis, or other emergencies. Patient's blood pressure was elevated (>120/80) but appears stable without evidence of hypertension emergency or urgency. The patient is to follow-up and pursue outpatient monitoring and therapy with their primary care physician within 1 week and return immediately if they have any new, worsening, or concerning symptoms. Departure Diagnosis: Primary Impression: Rash and other nonspecific skin eruption Condition: Fair Patient Instructions: Self-Care for Skin Rashes, Permethrin Topical lotion [facility] Usted se wu hecho un examen mdico de control que le indica que no est en jonny condicin que requiera tratamiento urgente en el Departamento de Emergencia. Un estudio ms profundo y el tratamiento de rider condicin pueden esperar sin ningn riesgo hasta que usted sea atendida/o en el consultorio de rider mdico o jonny clnica. Es responsabilidad suya arreglar jonny darío para el seguimiento del raymundo. MANEJO DE CONDICIONES NO URGENTES EN EL FUTURO 1) Si usted tiene un mdico de atencin primaria: Usted debera llamar a rider mdico de atencin primaria antes de venir al departamento de emergencia. Despus de las horas de consultorio, rider doctor o rider asociado/a est disponible por telfono. El mdico o enfermero de gloria en el servicio telefnico puede asesorarle por robinson medio para atender el problema, o raymundo contrario se puede programar jonny darío. 2) Si usted no tiene un mdico de atencin primaria: Llame al mdico o clnica de referencia que aparece abajo kiersten las horas de consultorio para hacer jonny darío para que le vean. CLINICAS: [facility] [phone] [facility] [phone] [address] [facility] [phone] [facility] [place] [phone] [facility]. [facility] [phone] [address] [facility]. [phone] [address] Additional Instructions: Llame al doctor MAANA y zachary jonny DARÍO PARA DENTRO DE 1-2 SAMANO.Dgale a la secretaria que nosotros le instruimos hacer esta darío.Avise o llame si rider condicin se empeora antes de la darío. Regresa aqui si peor o no mejor. SALVADOR TRIVEDI PA-C July 12, 2018 01:45
== END 2018-07-11 23:35 | disposition home or self-care (01) ==
LOC: FTE 22:03
DX: R21 Rash and other nonspecific skin eruption (principal); I10 Essential (primary) hypertension; E11.9 Type 2 diabetes mellitus without complications; Z79.84 Long term (current) use of oral hypoglycemic drugs
CPT/HCPCS: 99283